=== PATIENT | male | born 1990 | race Caucasian/White ===

== ENCOUNTER 2016-12-13 06:48 | Emergency (ER) | payer MEDICAID ==
[~2016-12-13] VITALS: Ht 177.8 cm; Wt 56.0 kg
[2016-12-13] MEDS ORDERED: DIAZEPAM 5 MG TABLET PO ONE (07:30)
[2016-12-13] MEDS ORDERED: KETOROLAC 30 MG/1 ML IM ONE (07:30)
[2016-12-13] MEDS ORDERED: OXYcodone/APAP 5/325MG TABLET PO ONE (07:30)
[2016-12-13] MEDS ORDERED: OXYcodone/APAP 5/325MG TABLET ONE (07:46)
[2016-12-13] MEDS ORDERED: KETOROLAC 30 MG/1 ML ONE (07:46)
[2016-12-13] MEDS ORDERED: DIAZEPAM 5 MG TABLET ONE (07:46)
[2016-12-13 09:25] VITALS: BP 113/52
== END 2016-12-13 09:29 | disposition home or self-care (01) ==
LOC: ED 09:23
DX: S16.1XXA Strain of muscle, fascia and tendon at neck level, initial encounter (principal); S29.012A Strain of muscle and tendon of back wall of thorax, initial encounter; W51.XXXA Accidental striking against or bumped into by another person, initial encounter; Y93.64 Activity, baseball; Y99.8 Other external cause status; Y92.89 Other specified places as the place of occurrence of the external cause
CPT/HCPCS: 72050; 72072; 96372; 99284; J1885

== ENCOUNTER 2017-02-12 20:39 | Emergency (ER) | payer MEDICAID ==
[~2017-02-12] VITALS: Ht 175.3 cm; Wt 56.4 kg
[2017-02-12 20:41] VITALS: BP 120/69
[2017-02-12] MEDS ORDERED: HYDROcodone/APAP 5/325 TABLET PO ONE (21:30)
[2017-02-12] MEDS ORDERED: HYDROcodone/APAP 5/325 TABLET ONE (21:40)
== END 2017-02-12 22:04 | disposition home or self-care (01) ==
LOC: ED 22:01
DX: S93.492A Sprain of other ligament of left ankle, initial encounter (principal); X50.1XXA Overexertion from prolonged static or awkward postures, initial encounter; Y93.89 Activity, other specified; Y92.328 Other athletic field as the place of occurrence of the external cause; Y99.8 Other external cause status
CPT/HCPCS: 99284

== ENCOUNTER 2019-05-21 04:48 | Emergency (ER) | payer SELFPAY ==
[~2019-05-21] VITALS: Ht 177.8 cm; Wt 55.6 kg
[2019-05-21 04:51] VITALS: BP 120/72
[2019-05-21] MEDS ORDERED: KETOROLAC 30 MG/1 ML ONE (05:21)
[2019-05-21] MEDS ORDERED: METHOCARBAMOL 750 MG TABLET ONE (05:21)
[2019-05-21] MEDS ORDERED: METHOCARBAMOL 750 MG TABLET PO ONE (05:30)
[2019-05-21] MEDS ORDERED: KETOROLAC 30 MG/1 ML IM ONE (05:30)
== END 2019-05-21 05:45 | disposition home or self-care (01) ==
LOC: ED 05:44
DX: S33.5XXA Sprain of ligaments of lumbar spine, initial encounter (principal); X58.XXXA Exposure to other specified factors, initial encounter; Y93.9 Activity, unspecified; Y92.89 Other specified places as the place of occurrence of the external cause; Y99.8 Other external cause status
CPT/HCPCS: 96372; 99283; J1885

== ENCOUNTER 2019-05-28 16:10 | Emergency (ER) | payer SELFPAY ==
[~2019-05-28] VITALS: Ht 175.3 cm; Wt 54.4 kg
[2019-05-28 16:12] VITALS: BP 131/79
[2019-05-28] MEDS ORDERED: IBUPROFEN 800 MG TABLET PO ONE (16:30)
[2019-05-28] MEDS ORDERED: METHOCARBAMOL 750 MG TABLET PO ONE (16:30)
[2019-05-28] MEDS ORDERED: IBUPROFEN 200 MG TABLET ONE (16:33)
[2019-05-28] MEDS ORDERED: METHOCARBAMOL 750 MG TABLET ONE (16:33)
== END 2019-05-28 17:00 | disposition home or self-care (01) ==
LOC: ED 16:50
DX: S39.012A Strain of muscle, fascia and tendon of lower back, initial encounter (principal); X58.XXXA Exposure to other specified factors, initial encounter; Y93.89 Activity, other specified; Y92.89 Other specified places as the place of occurrence of the external cause; Y99.8 Other external cause status
CPT/HCPCS: 99283

== ENCOUNTER 2020-11-20 08:35 | Emergency (ER) | payer MEDICAID ==
[~2020-11-20] VITALS: Ht 175.3 cm; Wt 57.5 kg
[2020-11-20 08:38] VITALS: BP 120/63
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
[2020-11-20] MEDS ORDERED: METHOCARBAMOL 750 MG TABLET PO ONE (09:00)
[2020-11-20] MEDS ORDERED: HYDROcodone/APAP 5/325 TABLET PO ONE (09:00)
[2020-11-20] MEDS ORDERED: METHOCARBAMOL 750 MG TABLET ONE (09:12)
[2020-11-20] MEDS ORDERED: HYDROcodone/APAP 5/325 TABLET ONE (09:13)
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
== END 2020-11-20 10:10 | disposition home or self-care (01) ==
LOC: ED 10:00
DX: S16.1XXA Strain of muscle, fascia and tendon at neck level, initial encounter (principal); S60.212A Contusion of left wrist, initial encounter; Y04.8XXA Assault by other bodily force, initial encounter; Y93.89 Activity, other specified; Y92.89 Other specified places as the place of occurrence of the external cause; Y99.8 Other external cause status
CPT/HCPCS: 29125; 70450; 72125; 99285